=== PATIENT | female | born 1950 | race Caucasian/White ===

== ENCOUNTER → 2016-09-02 | Outpatient (CLI) | payer BC ==
[2016-09-02 19:42] LABS: ALT 33 U/L (9-52); AST 23 U/L (14-36); Alkaline Phosphatase 85 U/L (38-126); Anion Gap 10 mmol/L; Blood Urea Nitrogen 19 mg/dL (7-17); Carbon Dioxide 29 mmol/L (22-30); Chloride 105 mmol/L (98-107); Cholesterol 219 mg/dL (<200); Glucose 79 mg/dL (74-99); HDL Cholesterol 59 mg/dL (40-60); Non-African American GFR(MDRD) >60 (>60 ml/min/1.73 sqM); Potassium 4.4 mmol/L (3.5-5.1); Sodium 144 mmol/L (137-145); Total Bilirubin 0.8 mg/dL (0.2-1.3); Total Protein 7.8 g/dL (6.3-8.2); Triglycerides 101 mg/dL (<150)
== END | disposition home or self-care (01) ==
LOC: MMGSC 10:13
PROVIDERS: ATTEND Family Medicine
DX: E03.9 Hypothyroidism, unspecified (principal); E55.9 Vitamin D deficiency, unspecified; E78.00 Pure hypercholesterolemia, unspecified
CPT/HCPCS: 36415; 80053; 80061; 82306; 84439; 84443

== ENCOUNTER → 2017-06-14 | Outpatient (CLI) | payer MEDICARE ==
[2017-06-14 19:39] LABS: T4, Free (Free Thyroxine) 1.71 ng/dL (0.78-2.19)
== END | disposition home or self-care (01) ==
LOC: MMGSC 09:59
PROVIDERS: ATTEND Family Medicine
DX: E03.9 Hypothyroidism, unspecified (principal); E55.9 Vitamin D deficiency, unspecified
CPT/HCPCS: 36415; 82306; 84439; 84443

== ENCOUNTER 2021-03-29 20:31 | Emergency (ER) | payer MEDICARE ==
[2021-03-29 21:46] VITALS: RESP 18; TEMP 98.2
[2021-03-29] MEDS ORDERED: SODIUM CHLORIDE 0.9% 1,000 ML IV STA (23:46)
[2021-03-29] MEDS ORDERED: ONDANSETRON 4 MG/2 ML VIAL IVP STA (23:46)
[2021-03-29] MEDS ORDERED: diphenhydrAMINE 50 MG/ML 1 ML VIAL IVP STA (23:46)
[2021-03-29] MEDS ORDERED: KETOROLAC 30 MG/ML 1 ML VIAL IVP STA (23:46)
--- NOTE | 2021-03-30 01:21 | ED ---
Headache HPI - General Chief Complaint: Headache Stated Complaint: Vomiting,Headache Time Seen by Provider: 03/29/21 23:24 Source: patient, RN notes reviewed Mode of arrival: ambulatory Limitations: no limitations - History of Present Illness Initial Comments: Patient is a 70-year-old female presenting to the emergency Department with complaints of a headache over the past 3-4 days. She and her have been recovering from Covid over the past 1-2 weeks. She states she does have history of headaches and migraines who over she hasn't been unable to get this to go away. She's been having nausea and vomiting as well. She states currently her pain is a 7/10. Located in the right side of the forehead. She denies any injuries or falls. She denies this being the worse headache of her life. She denies any chest pain or shortness of breath. She is no further complaints. Her vitals are stable upon arrival. - Related Data Allergies Allergy/AdvReac Type Severity Reaction Status Date / Time No Known Allergies Allergy Verified 03/29/21 21:46 Review of Systems ROS Statement: Those systems with pertinent positive or pertinent negative responses have been documented in the HPI. ROS Other: All systems not noted in ROS Statement are negative. Past Medical History Past Medical History: Thyroid Disorder Additional Past Medical History / Comment(s): Headaches History of Any Multi-Drug Resistant Organisms: None Reported Past Surgical History: Joint Replacement Past Psychological History: No Psychological Hx Reported Smoking Status: Never smoker Past Alcohol Use History: Occasional Past Drug Use History: None Reported General Exam - General Exam Comments Initial Comments: GENERAL: Patient is well-developed and well-nourished. Patient is nontoxic and in no acute distress. HEAD: Atraumatic, normocephalic. EYES: Pupils equal round and reactive to light, extraocular movements intact, sclera anicteric, conjunctiva are normal. Eyelids were unremarkable. ENT: TMs normal, nares patent, oropharynx clear without exudates. Moist mucous membranes. NECK: Normal range of motion, supple without lymphadenopathy or JVD. LUNGS: Unlabored respirations. Breath sounds clear to auscultation bilaterally and equal. No wheezes rales or rhonchi. HEART: Regular rate and rhythm without murmurs, rubs or gallops. ABDOMEN: Soft, nontender, normoactive bowel sounds. No guarding, no rebound. No masses appreciated. MUSCULOSKELETAL: Normal extremities with adequate strength and normal range of motion, no pitting or edema. No clubbing or cyanosis. NEUROLOGICAL: Patient is alert and oriented x 3. Motor and sensory are also intact. Cranial nerves II through XII grossly intact. Symmetrical smile. Normal speech, normal gait. PSYCH: Normal mood, normal affect. SKIN: Warm, Dry, normal turgor, no rashes or lesions noted. Limitations: no limitations Course Vital Signs 03/29/21 03/30/21 21:43 01:41 Temperature 98.2 F 98.2 F Pulse Rate 100 89 Respiratory 18 18 Rate Blood Pressure 126/86 105/69 O2 Sat by Pulse 95 97 Oximetry Medical Decision Making - Medical Decision Making Patient is a 70-year-old female here with a headache for the past 3-4 days. Her and her are recovering from Covid right now as well. She is in no acute distress, vital signs are stable. No acute neuro deficits on exam. Patient received IV pain medications, Zofran and Benadryl. She reports improvement in her symptoms. She states her headache is gone. She is stable for discharge. I recommended continue to increase her fluids, trial of Excedrin Extra Strength for any future headache. She can follow-up with her family doctor. She is agreeable to this plan of care. Disposition Clinical Impression: Headache Disposition: HOME SELF-CARE Condition: Stable Instructions (If sedation given, give patient instructions): Acute Headache (ED) Additional Instructions: Please return to the Emergency Department if symptoms worsen or any other concerns. May alternate between Tylenol and Motrin for future headaches, trial of extension strength. Increase your fluids. Follow up with your primary care as needed. Is patient prescribed a controlled substance at d/c from ED?: No Referrals: Wandy Denson MD [Primary Care Provider] - 1-2 days Time of Disposition: :
[2021-03-30 01:42] VITALS: BP 105/69; PULSE 89
== END 2021-03-30 01:42 | disposition home or self-care (01) ==
LOC: EC 20:31
DX: R51.9 Headache, unspecified (principal); E07.9 Disorder of thyroid, unspecified
CPT/HCPCS: 99283; 96374; 96375 ×2; J1200; J2405; J1885

== ENCOUNTER 2022-04-17 12:05 | Emergency (ER) | payer MEDICARE ==
[2022-04-17] MEDS ORDERED: SODIUM CHLORIDE 0.9% 1,000 ML IV STA (14:09)
[2022-04-17] MEDS ORDERED: diphenhydrAMINE 50 MG/ML 1 ML VIAL IVP STA (14:09)
[2022-04-17] MEDS ORDERED: DEXAMETHASONE SOD PHOSPHATE 10 MG/ML 1 ML VIAL IV STA (14:09)
[2022-04-17] MEDS ORDERED: ONDANSETRON 4 MG/2 ML VIAL IVP STA (14:09)
[2022-04-17] MEDS ORDERED: KETOROLAC 15 MG/ML 1 ML VIAL IVP STA (14:09)
[2022-04-17 15:04] LABS: Basophils # (A) 0.1 k/uL (0-0.2); Basophils % (A) 1 %; Eosinophils % (A) 0 %; HCT 40.8 % (34.0-46.0); HGB 13.9 gm/dL (11.4-16.0); Lymphocytes # (A) 0.8 k/uL (1.0-4.8); Lymphocytes % (A) 10 %; MCH 31.9 pg (25.0-35.0); MCV 93.7 fL (80.0-100.0); Mean Platelet Volume 8.1; Monocytes # (A) 0.4 k/uL (0-1.0); Monocytes % (A) 5 %; Neutrophils # (A) 6.8 k/uL (1.3-7.7); Neutrophils % (A) 82 %; Platelet Count 289 k/uL (150-450); RBC 4.36 m/uL (3.80-5.40); RDW 13.3 % (11.5-15.5); WBC 8.3 k/uL (3.8-10.6)
[2022-04-17 15:21] LABS: Albumin 4.2 g/dL (3.5-5.0); Calcium 8.8 mg/dL (8.4-10.2); Potassium 4.7 mmol/L (3.5-5.1); Total Bilirubin 0.4 mg/dL (0.2-1.3); Total Protein 6.8 g/dL (6.3-8.2)
[2022-04-17] MEDS ORDERED: ACETAMINOPHEN TAB 500 MG TAB PO STA (15:30)
[2022-04-17] MEDS ORDERED: METOCLOPRAMIDE 5 MG/ML 2 ML VIAL IVP STA (15:30)
[2022-04-17 16:10] VITALS: RESP 16
--- NOTE | 2022-04-17 16:40 | ED ---
URI HPI - General Chief Complaint: Upper Respiratory Infection Stated Complaint: URI Time Seen by Provider: 04/17/22 13:52 Source: patient Mode of arrival: ambulatory Limitations: no limitations - History of Present Illness Initial Comments: Patient is a 71-year-old female who presents to the emergency department with a chief complaint of headache. Symptoms have been occurring for the past 3 days. She also has associated body aches, dry cough, nausea with one episode of vomiting. Due to nausea patient has had decreased oral intake. She denies nina st bustillo, shortness of breath, neck pain, abdominal pain, diarrhea. Patient does have history of migraines and took her abortive triptan with no relief. States this headache feels similar to her typical migraines. - Related Data Previous Rx's Medication Instructions Recorded Ondansetron Odt [Zofran Odt] 4 mg PO Q8HR PRN #10 tab 04/17/22 Allergies Allergy/AdvReac Type Severity Reaction Status Date / Time No Known Allergies Allergy Verified 04/17/22 12:17 Review of Systems ROS Statement: Those systems with pertinent positive or pertinent negative responses have been documented in the HPI. ROS Other: All systems not noted in ROS Statement are negative. Past Medical History Past Medical History: Thyroid Disorder Additional Past Medical History / Comment(s): Headaches History of Any Multi-Drug Resistant Organisms: None Reported Past Surgical History: Joint Replacement Past Psychological History: No Psychological Hx Reported Smoking Status: Never smoker Past Alcohol Use History: Occasional Past Drug Use History: None Reported General Exam Limitations: no limitations General appearance: alert, in no apparent distress Head exam: Present: atraumatic, normocephalic, normal inspection Eye exam: Present: normal appearance, PERRL, EOMI. Absent: scleral icterus, conjunctival injection, periorbital swelling ENT exam: Present: normal oropharynx Neck exam: Present: normal inspection. Absent: meningismus Respiratory exam: Present: normal lung sounds bilaterally. Absent: respiratory distress, wheezes, rales, rhonchi, stridor Cardiovascular Exam: Present: normal rhythm, tachycardia, normal heart sounds. Absent: regular rate, irregular rhythm, systolic murmur, diastolic murmur, rubs, gallop, clicks GI/Abdominal exam: Present: soft, normal bowel sounds. Absent: distended, tend erness, guarding, rebound, rigid Neurological exam: Present: alert, oriented X3, CN II-XII intact Psychiatric exam: Present: normal affect, normal mood Skin exam: Present: warm, dry, intact, normal color. Absent: rash Course Vital Signs 04/17/22 04/17/22 04/17/22 12:14 14:48 14:51 Temperature 98.8 F 103.0 F H Pulse Rate 116 H 89 Respiratory 22 17 17 Rate Blood Pressure 116/74 122/84 O2 Sat by Pulse 97 96 Oximetry 04/17/22 04/17/22 16:09 17:12 Temperature 98.4 F Pulse Rate 87 86 Respiratory 16 16 Rate Blood Pressure 108/67 103/68 O2 Sat by Pulse 94 L 98 Oximetry Medical Decision Making - Medical Decision Making This is a 71-year-old female presenting with headache. Patient has febrile at 103.0F. Mildly tachycardic at 116. No hypoxia. Influenza A is detected. With older age and decreased oral intake, I did obtain laboratory studies. There is no leukocytosis. There is mild hyponatremia. Other laboratory studies are unremarkable. Patient given migraine cocktail with significant relief. Tachycardia resolved after fluid bolus. Fever responsive to Tylenol. Results discussed with patient. I do not recommend Tamiflu for this patient has side effects outweigh the benefits. Patient agrees. Patient feeling much better, acceptable vital signs, no abnormal lung sounds. She will be discharged with symptomatic medication. Dr. Powell is my attending. - Lab Data Result diagrams: 04/17/22 14:40 04/17/22 14:40 Lab Results 04/17/22 04/17/22 04/17/22 Range/Units 12:19 14:40 14:40 WBC 8.3 (3.8-10.6) k/uL RBC 4.36 (3.80-5.40) m/uL Hgb 13.9 (11.4-16.0) gm/dL Hct 40.8 (34.0-46.0) % MCV 93.7 (80.0-100.0) fL MCH 31.9 (25.0-35.0) pg MCHC 34.0 (31.0-37.0) g/dL RDW 13.3 (11.5-15.5) % Plt Count 289 (150-450) k/uL MPV 8.1 Neutrophils % 82 % Lymphocytes % 10 % Monocytes % 5 % Eosinophils % 0 % Basophils % 1 % Neutrophils # 6.8 (1.3-7.7) k/uL Lymphocytes # 0.8 L (1.0-4.8) k/uL Monocytes # 0.4 (0-1.0) k/uL Eosinophils # 0.0 (0-0.7) k/uL Basophils # 0.1 (0-0.2) k/uL Sodium 134 L (137-145) mmol/L Potassium 4.7 (3.5-5.1) mmol/L Chloride 99 (98-107) mmol/L Carbon Dioxide 27 (22-30) mmol/L Anion Gap 8 mmol/L BUN 14 (7-17) mg/dL Creatinine 0.84 (0.52-1.04) mg/dL Est GFR (CKD-EPI)AfAm 81 (>60 ml/min/1.73 sqM) Est GFR (CKD-EPI)NonAf 71 (>60 ml/min/1.73 sqM) Glucose 105 H (74-99) mg/dL Calcium 8.8 (8.4-10.2) mg/dL Total Bilirubin 0.4 (0.2-1.3) mg/dL AST 37 H (14-36) U/L ALT 25 (4-34) U/L Alkaline Phosphatase 91 (38-126) U/L Total Protein 6.8 (6.3-8.2) g/dL Albumin 4.2 (3.5-5.0) g/dL Influenza Type A (PCR) Detected A (Not Detectd) Influenza Type B (PCR) Not Detected (Not Detectd) RSV (PCR) Not Detected (Not Detectd) SARS-CoV-2 (PCR) Not Detected (Not Detectd) Disposition Clinical Impression: Influenza A, Migraine, Nausea and vomiting, Rhinorrhea Disposition: HOME SELF-CARE Condition: Good Instructions (If sedation given, give patient instructions): Influenza (ED) Additional Instructions: Take Zofran as directed. Increase fluid intake as tolerated. Take Tylenol or Motrin for fever and bodyaches. Return to the emergency department experience new, concerning, or worsening symptoms. Prescriptions: Ondansetron Odt [Zofran Odt] 4 mg PO Q8HR PRN #10 tab PRN Reason: Nausea Is patient prescribed a controlled substance at d/c from ED?: No Referrals: Wandy Denson MD [Primary Care Provider] - 1-2 days Time of Disposition: 16:40
[2022-04-17 17:12] VITALS: BP 103/68; PULSE 86; TEMP 98.4
== END 2022-04-17 17:25 | disposition home or self-care (01) ==
LOC: EC 12:05
DX: J10.1 Influenza due to other identified influenza virus with other respiratory manifestations (principal); G43.909 Migraine, unspecified, not intractable, without status migrainosus; R11.2 Nausea with vomiting, unspecified; Z20.822 Contact with and (suspected) exposure to COVID-19
CPT/HCPCS: 36415; 80053; 85025; 87636; 99284; 96374; 96375 ×4; 96361; J1200; J1100; J2765; J2405; J1885

== ENCOUNTER 2022-11-08 11:58 | Day surgery (SDC) | payer MEDICARE ==
[~2022-11-08 11:58] MED LIST: LACTATED RINGERS 1,000 ML IV SCH; LIDOCAINE 1% (10MG/ML) FOR IV START INTRADERMA PRN
[2022-11-08 12:58] VITALS: TEMP 96.8
[2022-11-08] MEDS ORDERED: LIDOCAINE 2% INJ 20 MG/ML (2 ML VIAL) ONE (13:36)
[2022-11-08] MEDS ORDERED: PROPOFOL 10 MG/ML 20 ML VIAL IV ONE (13:36)
--- NOTE | 2022-11-08 13:50 | P.PCN ---
Date of Procedure: 11/08/22 Procedure(s) Performed: BRIEF HISTORY: Patient is a 72-year-old pleasant white female scheduled for an elective colonoscopy as a part of screening for colon cancer. Her last colonoscopy was 10 years ago. PROCEDURE PERFORMED: Colonoscopy. PREOPERATIVE DIAGNOSIS: Screening for colon cancer. IV sedation per Anesthesia. PROCEDURE: After informed consent was obtained, the patient, was brought into the endoscopy unit. IV sedation was administered by Anesthesia under continuous monitoring. Digital rectal examination was normal. Initially the Olympus CF-160 flexible video colonoscope was then inserted in the rectum, gradually advanced into the cecum without any difficulty. Careful examination was performed as the scope was gradually being withdrawn. Ileocecal valve and the appendiceal orifice were visualized and appeared normal. Prep was excellent. Mucosa of the cecum, ascending colon, transverse colon, descending colon, sigmoid colon, and rectum appeared normal. Retroflexion was performed in the rectum and no lesions were seen. The patient tolerated the procedure well. IMPRESSION: Normal-appearing colon from rectum to cecum with no evidence of colorectal neoplasia. RECOMMENDATIONS: Findings of this examination were discussed with the patient as well as her family. She was advised to have a repeat screening colonoscopy in 10 years.
[2022-11-08 14:12] VITALS: RESP 16
[2022-11-08 14:21] VITALS: BP 127/84; PULSE 71
== END 2022-11-08 14:35 | disposition home or self-care (01) ==
LOC: ORWHC2ENDO 11:58
PROVIDERS: ATTEND Internal Medicine Gastroenterology
DX: Z12.11 Encounter for screening for malignant neoplasm of colon (principal); E03.9 Hypothyroidism, unspecified; G43.909 Migraine, unspecified, not intractable, without status migrainosus; Z79.890 Hormone replacement therapy; Z79.899 Other long term (current) drug therapy
CPT/HCPCS: J2704; J2001; G0121

== ENCOUNTER → 2023-01-09 | Outpatient (CLI) | payer MEDICARE ==
[2023-01-09 11:01] LABS: African American GFR (CKD) 81 (>60 ml/min/1.73 sqM); Blood Urea Nitrogen 16 mg/dL (7-17); Non-African American GFR(CKD) 70 (>60 ml/min/1.73 sqM)
--- NOTE | 2023-01-09 12:12 | CT ---
EXAMINATION TYPE: CT ChestAbdPelvis w con DATE OF EXAM: 01/09/2023 COMPARISON: None HISTORY: pelvic mass? CT DLP: 1144 mGycm CONTRAST: CT scan of the chest, abdomen and pelvis is performed with Oral Contrast and with IV Contrast, patien t injected with 100 mL of Isovue 300. CT Chest: LUNGS: The lungs are clear and free of infiltrate or atelectasis. Subpleural nodule right upper lung posteriorly measuring 6.2 mm. No additional nodules seen. Mild scattered subpleural fibrosis. No pleu ral effusion or CT evidence of interstitial lung disease. MEDIASTINUM: Thoracic aorta is of normal caliber. The heart is not enlarged. No evidence for media stinal mass or adenopathy. HILAR STRUCTURES: No evidence for mass. No hilar adenopathy is appreciated. OTHER: No significant abnormality. CONTRAST CT ABDOMEN AND PELVIS FINDINGS: LIVER/GB: There is evidence of hepatic steatosis. No calcified gallstones. No space occupying hepa tic lesion. Biliary tree is of normal caliber. PANCREAS: No inflammation. No distinct mass. SPLEEN: No splenic enlargement. No lesion seen. ADRENALS: No nodule. No thickening. KIDNEYS/BLADDER: No hydronephrosis. No nephrolithiasis. No disctinct renal mass. BOWEL: Normal appendix. There is wall thickening involving the gastric antrum. Scattered flecks spas m or underlying mass is not excluded. Direct visualization is advised. Normal bowel caliber. No infl ammation. Limited evaluation of the pelvic bowel loops. GENITAL ORGANS: Evaluation of the pelvis is limited given streak artifact from the patient's right hi p prosthesis. There is a right adnexal mass which I cannot characterize appropriately given streak ar tifact measures 7.5 x 3.2 cm. Nondiagnostic evaluation of of the uterus and urinary bladder left adne xa is nondiagnostic as well. LYMPH NODES: No greater than 1cm abdominal or pelvic lymph nodes are appreciated. AORTA: No significant abnormality. OSSEOUS STRUCTURES: No significant abnormality is seen. OTHER: Small fat-containing umbilical hernia. IMPRESSION: 1. Evaluation of the pelvis is limited given streak artifact from the patient's right hip prosthesis. There is a right adnexal mass which I cannot characterize appropriately given streak artifact measur es 7.5 x 3.2 cm. Recommend ultrasound for further evaluation.
== END | disposition home or self-care (01) ==
LOC: RADCTMAIN 09:41
PROVIDERS: ATTEND Obstetrics & Gynecology
DX: R19.09 Other intra-abdominal and pelvic swelling, mass and lump (principal); Z96.641 Presence of right artificial hip joint
CPT/HCPCS: 82565; 84520; 71260; 74177; 36415; Q9967